=== PATIENT | female | born 1970 | race Caucasian/White ===

== ENCOUNTER → 2017-05-01 | Outpatient (CLI) | payer BC, SELFPAY ==
--- NOTE | 2017-05-01 13:54 | REP ---
MRI study of the brain and internal auditory canals posterior fossa without and with IV gadolinium: History: Vertigo. Pounding bilateral ear symptoms. Technique: Axial and coronal imaging planes are utilized. Sequences include T1 and T2-weighted turbo spin-echo, spin echo, FLAIR, diffusion weighted scans, and post gadolinium enhanced images with thin sections through the posterior fossa. Findings: Craniocervical junction and upper cervical cord are normal in appearance. No bony calvarial lesion is seen. There is no MR evidence of significant paranasal sinus disease. No intraorbital abnormality is seen. Thin sections through the internal auditory canals demonstrate normal seventh and eighth nerves in unremarkable symmetric internal auditory canals. No other cranial nerve abnormality is appreciated. No CP angle cistern mass is seen. Post gadolinium enhanced images show no evidence of intracanalicular or extracanalicular abnormal enhancement. Diffusion weighted scans show no evidence of acute ischemia. No abnormal white matter lesion is seen. Lateral, third, fourth ventricles are normal in size and position. Cueto-white differentiation pattern is intact. Coronal and axial thin sections postcontrast show no abnormal gadolinium enhancement in the vicinity of either internal auditory canal. Enhancement is seen in normal intracranial vascular structures. No abnormal enhancement is seen elsewhere. Impression: Normal brain and internal auditory canal MRI study without and with IV contrast. Signed by Anshul Lee MD 05/01/2017 03:21 P
== END ==
LOC: M RAD 04-24 09:07
PROVIDERS: ATTEND Specialist
DX: H81.49 Vertigo of central origin, unspecified ear (principal); H93.13 Tinnitus, bilateral
CPT/HCPCS: 70553; A9576

== ENCOUNTER → 2021-05-03 | Outpatient (CLI) | payer BC ==
[2021-05-03 20:27] LABS: FREE T4 0.82 NG/DL (0.76-1.46); FREE THYROXINE INDEX 2.6 % (1.3-4.8); T UPTAKE 36 % (30-39); THYROXINE (T4) 7.1 UG/DL (4.5-12.0)
[2021-05-03 20:29] LABS: VITAMIN B12 LEVEL > 2000 PG/ML
[2021-05-03 20:30] LABS: FOLATE > 24.0 NG/ML
[2021-05-06 11:33] LABS: ALBUMIN 4.28 GM/DL (3.29-5.55); ALBUMIN % 61.1 % (55.8-66.1); ALPHA-1-GLOBULIN % 3.3 % (2.9-4.9); ALPHA-1-GLOBULINS 0.23 GM/DL (0.17-0.41); ALPHA-2-GLOBULINS 0.56 GM/DL (0.42-0.99); BETA-1-GLOBULINS 0.46 GM/DL (0.28-0.60); BETA-1-GLOBULINS % 6.5 % (4.7-7.2); BETA-2-GLOBULINS 0.33 GM/DL (0.19-0.55); BETA-2-GLOBULINS % 4.7 % (3.2-6.5); GAMMA GLOBULIN % 16.4 % (11.1-18.8); GAMMA GLOBULINS 1.15 GM/DL (0.65-1.58)
[2021-05-06 13:07] LABS: ANTINUCLEAR ANTIBODIES DIRECT Negative (Negative)
== END ==
LOC: M WUC 15:48
PROVIDERS: ATTEND Psychiatry & Neurology Neurology
DX: R42 Dizziness and giddiness (principal); G43.909 Migraine, unspecified, not intractable, without status migrainosus

== ENCOUNTER → 2021-06-07 | Outpatient (CLI) | payer BC ==
--- NOTE | 2021-06-07 15:43 | REP ---
INDICATION: INTRAMURAL LEIOMYOMA OF UTERUS. COMPARISON: 04/16/2018. TECHNIQUE: Transabdominal and transvaginal scanning performed. FINDINGS: Uterine dimensions are 14.2 x 7.7 x 7.7 cm. Endometrial echo complex is obscured by multiple fibroids. The multiple fibroids are grossly unchanged compared to the prior exam. The largest fibroid is in the region of the fundus measuring 7.8 x 7.8 x 7.5 cm. Two other dominant fibroids are visualized, 1 anteriorly measuring 3.1 x 2.9 x 3.4 cm and another more inferiorly on the left 4.1 x 3.3 x 3.5 cm. In the region of the cervix there is an anechoic nabothian cyst posteriorly. Anteriorly there is a hypoechoic nodule measuring 1.4 x 0.8 x 1.4 cm which demonstrates internal blood flow. The bladder measures 8.7 x 5.0 x 9.7cm. The right ovary has dimensions of 2.7 x 2.0 x 2.5 cm. It's Doppler flow is normal with a resistive index of 0.65. The left ovary dimensions are 2.1 x 2.0 x 2.6 cm. It's Doppler flow was normal with resistive index of 0.58. There is no adnexal mass identified. No free fluid is seen in the cul-de-sac. IMPRESSION: Enlarged fibroid uterus appears similar to the prior study. Endometrium is obscured by multiple fibroids. The ovaries are unremarkable. Hypoechoic solid nodule anterior cervix. This may represent cervical neoplasm. <Electronically signed by Alex Cueto > 06/07/21 [id number]
== END ==
LOC: M WHC 12:29
PROVIDERS: ATTEND Obstetrics & Gynecology
DX: D25.1 Intramural leiomyoma of uterus (principal)

== ENCOUNTER → 2021-09-12 | Outpatient (CLI) | payer BC ==
[~2021-09-12] MED LIST: BIOT1CAP2 PO; CYAN500T14 PO; CYMB60CA4 PO; D31000TA2 PO; DIVA250T7 PO; DIVA500T9 PO; POTATAB PO; VITA50TA43 PO; ZONI25CA13 PO; vitamin b2 PO
== END ==
LOC: M EKG 15:42
PROVIDERS: ATTEND Anesthesiology
DX: Z01.818 Encounter for other preprocedural examination (principal)

== ENCOUNTER → 2021-09-14 | Outpatient (CLI) | payer BC | LOC: M LABSMTC 10:48 | PROVIDERS: ATTEND Anesthesiology | DX: Z01.818 Encounter for other preprocedural examination (principal); Z11.52 Encounter for screening for COVID-19 ==

== ENCOUNTER 2021-09-19 08:27 | Day surgery (SDC) | payer BC ==
[~2021-09-19] VITALS: Ht 154.9 cm; Wt 63.6 kg
[~2021-09-19 08:27] MED LIST changes: +LIDOCAINE 1% MDV 20ML VIAL SQ PRN; +ceFAZolin SOD 2 GM in IV 1 EA IV ONE
[2021-09-19 08:53] LABS: HEMATOCRIT 43.7 % (36.0-47.0); HEMOGLOBIN 14.6 g/dl (12.0-15.5); MEAN CORPUSCULAR HEMOGLOBIN 30.4 pg (27.0-33.0); MEAN CORPUSCULAR HGB CONC 33.4 g/dl (32.0-36.5); MEAN CORPUSCULAR VOLUME 90.9 fl (80.0-96.0); PLATELET COUNT, AUTOMATED 282 10^3/uL (150-450); RED BLOOD COUNT 4.81 10^6/uL (4.00-5.40)
[2021-09-19] MEDS ORDERED: ceFAZolin 2 GM/D5W 50 ML IV BAG (J0690 PER 500MG) As Ordered ONE (09:00)
[2021-09-19] MEDS ORDERED: ROCURONIUM BROMIDE 50 MG/5 ML VIAL As Ordered ONE ×2 (09:06→12:09)
[2021-09-19] MEDS ORDERED: MIDAZOLAM INJ 2MG/2ML VIAL (J2250 PER 1MG) As Ordered ONE (09:06)
[2021-09-19] MEDS ORDERED: METOCLOPRAMIDE INJ 10MG/2ML VIAL (J2765 PER 1) As Ordered ONE (09:06)
[2021-09-19] MEDS ORDERED: ONDANSETRON 4MG/2ML VIAL As Ordered ONE (09:06)
[2021-09-19] MEDS ORDERED: dexameTHASONE 4 MG/ML 1ML VIAL (J1100 PER 1MG) As Ordered ONE (09:06)
[2021-09-19] MEDS ORDERED: propofoL 200 MG/20 ML VIAL As Ordered ONE (09:06)
[2021-09-19] MEDS ORDERED: LIDOCAINE 2% 100MG/5ML SDV (FOR ANES.) As Ordered ONE (09:06)
[2021-09-19] MEDS ORDERED: fentaNYL 100 MCG/2 ML INJECTION As Ordered ONE ×2 (09:06→11:26)
[2021-09-19] MEDS ORDERED: LR 1,000 ML IV ONE (09:35)
[2021-09-19] MEDS ORDERED: ACETAMINOPHEN 1000MG 100ML IV BTL (OFIRMEV) (J0131 PER 10MG) As Ordered ONE (11:17)
[2021-09-19] MEDS ORDERED: SUGAMMADEX SODIUM 500 MG/5 ML VIAL (BRIDION) As Ordered ONE (11:27)
[2021-09-19] MEDS ORDERED: KETOROLAC 60MG 2ML VIAL As Ordered ONE (11:27)
[2021-09-19] MEDS ORDERED: DESFLURANE 240 ML INHALANT As Ordered ONE (12:31)
[2021-09-19] MEDS ORDERED: PHENYLephrine 500MCG 5ML (100MCG/ML) SYRINGE As Ordered ONE (13:35)
[2021-09-19] MEDS ORDERED: MORPHINE 1MG/ML IN 0.9% NACL 100ML IV BAG As Ordered ONE (14:06)
[2021-09-19] MEDS ORDERED: KETAMINE HCL 200 MG/20 ML VIAL As Ordered ONE (14:28)
[2021-09-19] MEDS ORDERED: LR 1,000 ML IV SCH (14:30)
[2021-09-19] MEDS ORDERED: PERCOCET 5MG/325MG TAB PO PRN (14:30)
[2021-09-19] MEDS ORDERED: fentaNYL 100 MCG/2 ML INJECTION IV PRN (14:30)
[2021-09-19] MEDS ORDERED: METOCLOPRAMIDE INJ 10MG/2ML VIAL (J2765 PER 1) IV PRN (14:30)
[2021-09-19] MEDS ORDERED: ONDANSETRON 4MG/2ML VIAL IV PRN (14:30)
[2021-09-19] MEDS ORDERED: MORPHINE 1MG/ML IN 0.9% NACL 100ML IV BAG IV PRN (14:35)
[2021-09-19] MEDS ORDERED: diphenhydrAMINE 50MG/ML VIAL (J1200) IV PRN (14:35)
[2021-09-19] MEDS ORDERED: NALBUPHINE HCL 10 MG/ML AMP (J2300) IV PRN (14:35)
[2021-09-19] MEDS ORDERED: EPIDURAL/PCA KEYS XX PRN (14:35)
[2021-09-19] MEDS ORDERED: NALOXONE INJ 0.4MG/1ML VIAL (J2310 PER 1MG) IV PRN (14:35)
[2021-09-19] MEDS ORDERED: NS 1,000 ML IV SCH (14:35)
[2021-09-19 17:45] VITALS: BP 107/66
[2021-09-19] MEDS: LR 1,000 ML IV SCH ×2 (18:08→21:07)
[2021-09-19 18:15] VITALS: BP 109/65
[2021-09-19 18:45] VITALS: BP 109/65
[2021-09-19 18:54] VITALS: O2SAT 96
[2021-09-19 19:45] VITALS: BP 107/65
[2021-09-19 22:00] VITALS: BP 110/55
[2021-09-20 02:00] VITALS: BP 97/61
[2021-09-20] MEDS: IBUPROFEN 600MG TAB PO PRN ×2 (02:25→08:43)
[2021-09-20] MEDS: LR 1,000 ML IV SCH ×2 (04:30→14:40)
[2021-09-20 06:00] VITALS: BP 98/62
[2021-09-20] MEDS ORDERED: NORCO, ANEXSIA 5/325MG TABLET (HYDROcodone/ACETAMINOPHEN) PO PRN (06:00)
[2021-09-20 07:28] LABS: HEMATOCRIT 35.2 % (36.0-47.0); MEAN CORPUSCULAR HEMOGLOBIN 30.6 pg (27.0-33.0); MEAN CORPUSCULAR VOLUME 92.9 fl (80.0-96.0); PLATELET COUNT, AUTOMATED 245 10^3/uL (150-450); RED BLOOD COUNT 3.79 10^6/uL (4.00-5.40); WHITE BLOOD COUNT 11.3 10^3/uL (4.0-10.0)
[2021-09-20 07:35] LABS: HEMOGLOBIN 11.6 g/dl (12.0-15.5)
[2021-09-20 10:00] VITALS: BP 99/62
[2021-09-20 14:00] VITALS: BP 110/72
== END 2021-09-20 15:48 | disposition home or self-care (01) ==
LOC: M SDC 08:27 → M MSPAV 17:32 → M SDC 09-20 15:48
PROVIDERS: ATTEND Obstetrics & Gynecology
DX: D25.9 Leiomyoma of uterus, unspecified (principal); N93.9 Abnormal uterine and vaginal bleeding, unspecified; N73.6 Female pelvic peritoneal adhesions (postinfective); F32.9 Major depressive disorder, single episode, unspecified; R32 Unspecified urinary incontinence; B00.9 Herpesviral infection, unspecified; R12 Heartburn; M06.9 Rheumatoid arthritis, unspecified; L30.9 Dermatitis, unspecified; Z79.899 Other long term (current) drug therapy
CPT/HCPCS: 36415; 58554; 85027; 86850; 86900; 86901; 88307; J0131; J0690; J1100; J1885; J2250; J2370; J2405; J2765; J3010; S2900

== ENCOUNTER → 2021-10-11 | Outpatient (CLI) | payer BC ==
[~2021-10-11] MED LIST changes: -D31000TA2 PO; -LIDOCAINE 1% MDV 20ML VIAL SQ PRN; +VITA100093 PO; -ceFAZolin SOD 2 GM in IV 1 EA IV ONE
== END ==
LOC: M WHC 11:54
PROVIDERS: ATTEND Obstetrics & Gynecology
DX: Z12.31 Encounter for screening mammogram for malignant neoplasm of breast (principal)

== ENCOUNTER → 2022-02-28 | Outpatient (REF) | payer BC ==
[2022-02-28 20:28] LABS: HEPATITIS B SURFACE ANTIBODY POSITIVE (POSITIVE); HEPATITIS B SURFACE ANTIGEN NEGATIVE (NEGATIVE); HEPATITIS C VIRUS ABY INDEX < 0.0 INDEX (<0.8); RHEUMATOID FACTOR QUANT 29.8 IU/ML (<15.0)
[2022-03-04 00:07] LABS: CYCLIC CITRULLINATED PEPTIDE 7 units (0-19); HEPATITIS B CORE ANTIBODY IGG Negative (Negative)
== END ==
LOC: M SFHCRHEU 14:34
PROVIDERS: ATTEND Internal Medicine
DX: R76.8 Other specified abnormal immunological findings in serum (principal)

== ENCOUNTER → 2022-02-28 | Outpatient (CLI) | payer BC | LOC: M RAD 15:55 | PROVIDERS: ATTEND Internal Medicine | DX: M51.36 Other intervertebral disc degeneration, lumbar region (principal); M51.37 Other intervertebral disc degeneration, lumbosacral region; M48.061 Spinal stenosis, lumbar region without neurogenic claudication; M48.07 Spinal stenosis, lumbosacral region ==

== ENCOUNTER → 2022-10-07 | Outpatient (REF) | payer BC ==
[2022-10-07 18:03] LABS: SOURCE, BODY FLUID RT KNEE; SYNOVIAL FLUID COLOR YELLOW (COLORLESS)
[2022-10-07 18:26] LABS: CRYSTALS, BODY FLUID NONE SEEN (NONE SEEN); SOURCE, BODY FLUID CRYSTALS RT KNEE
[2022-10-07 19:41] LABS: SOURCE, BODY FLUID GLUCOSE RT KNEE
== END ==
LOC: M LAB REF 16:57
PROVIDERS: ATTEND Physician Assistant
DX: M25.461 Effusion, right knee (principal)

== ENCOUNTER → 2022-11-07 | Outpatient (CLI) | payer BC | LOC: M WHC 14:05 | PROVIDERS: ATTEND Nurse Practitioner Family | DX: Z12.31 Encounter for screening mammogram for malignant neoplasm of breast (principal) ==

== ENCOUNTER → 2022-11-10 | Outpatient (CLI) | payer BC | LOC: M RAD 07:55 | PROVIDERS: ATTEND Physician Assistant | DX: M46.1 Sacroiliitis, not elsewhere classified (principal) ==

== ENCOUNTER 2022-12-26 09:50 | Day surgery (SDC) | payer BC ==
[~2022-12-26] VITALS: Ht 154.9 cm; Wt 61.7 kg
[~2022-12-26 09:50] MED LIST changes: +MAGN400C PO; +NS 1,000 ML IV ONE; +VITA-16 PO
[2022-12-26 11:19] VITALS: BP 103/67
== END 2022-12-26 11:20 | disposition home or self-care (01) ==
LOC: M OPP 09:50
PROVIDERS: ATTEND Surgery
DX: Z12.11 Encounter for screening for malignant neoplasm of colon (principal); Z86.010 Personal history of colon polyps; K64.1 Second degree hemorrhoids; Z79.899 Other long term (current) drug therapy